=== PATIENT | female | born 1990 | race Caucasian/White ===

== ENCOUNTER 2016-08-27 09:51 | Emergency (ER) | payer SELFPAY ==
[2016-08-27 10:07] VITALS: BP 121/66; PULSE 85; TEMP 98.6; BMI 19.5
--- NOTE | 2016-08-27 10:24 | EDPRACDOC ---
- General Information Chief Complaint: Earache Stated Complaint: SORE THROAT/ EAR PAIN Time Seen by Provider: 08/27/16 10:07 Information Source: Patient Mode of Arrival: Car Home Medications: Home Medications Amoxicillin [Amoxil] 500 mg PO BID #20 cap 08/27/16 Fluticasone Propionate [Flonase Nasal [place]] 1 - 2 spray ODESSA DAILY #1 each 08/27 Norgestimate-Ethinyl Estradiol [Sprintec] 1 tab PO DAILY 08/27/16 Pseudoephedrine [Sudafed] 30 mg PO Q6 PRN #10 tab 08/27/16 Allergies/Adverse Reactions: Allergies Allergy/AdvReac Type Severity Reaction Status Date / Time No Known Allergies Allergy Verified 08/27/16 10:07 - History of Present Illness Onset: days HPI: Patient reports she has been intermittently sick for 2 wks, cough/congestion, ear pain and sore throat. Left ear pain and sore throat x 2 days which has been worsening. Patient denies fever, chills, nausea/vomiting. Denies chance of . Location: left ear Context: Reports: URI Symptoms Pain Severity: Reports: Mild Associated Signs & Symptoms: Reports: Runny Nose, Sore Throat ED Past Medical History - History Reviewed Yes Nurses notes reviewed and agree except as marked No Past Medical History: Yes Patient has no past medical history - Patient Medical History Systemic History: Reports: Anemia. Denies: Cancer, Lupus Surgical History: Denies: Hysterectomy - Family Medical History Reports: Hypertension (MATERNAL GRANDFATHER), Diabetes (MATERNAL GRANDMOTHER PATERNAL GRANDMOTHER), Cancer (MATERNAL AUNTS), Stroke (MATERNAL AUNT), Cardiac Disorders (MATERNAL GRANDFATHER) - Social Medical History Smoking Status: Never smoker Social History: Denies: Amphetamine Use, Barbiturate Use ETOH: None Substance Abuse: None Lives In: Home EDM Review of Systems - Review of Systems ROS Negative Except as Marked: Yes All systems reviewed and were negative except as marked Constitutional: No Symptoms Reported Eyes: No Symptoms Reported Ears: Pain Throat: Pain Nose: Congestion Mouth: No Symptoms Reported Respiratory: No Symptoms Reported Cardiovascular: No Symptoms Reported Gastrointestinal: No Symptoms Reported Genitourinary: No Symptoms Reported - Physical Exam Constitutional: Alert (Awake), No apparent distress Oriented to: Time, Person, Place Last recorded Vital Signs: Last Vital Signs Temp 98.6 F 08/27/16 10:05 Pulse 85 08/27/16 10:05 Resp 16 08/27/16 10:05 BP 121/66 08/27/16 10:05 Pulse Ox 100 08/27/16 10:05 Oxygen Pulse Oxygen Saturation 100 O2 Device Oxygen Flow Rate Fraction of Inspired Oxygen ( FIO2) - HEENT Head: Normal ( normocephalic) Eye Exam: Normal (PERRL, EOMI, Sclera white) Oropharynx: Red. negative: Exudate Tympanic Membrane: Bulging, Redness ENT EAC: Normal TMJ: Normal Nose: No Symptoms Reported (septum midline) Neck: Normal (FROM, trachea at midline) - Respiratory/Cardiovascular Respiratory: Normal - CTA (BBS clear to auscultation without adventitious sounds ) Cardiovascular: Normal (RRR without murmur, gallop or rub) - GI Auscultation: Normal (NABS) Tenderness: Non tender - Musculoskeletal Back: Normal (Non-Tender) Extremities: Normal (Normal tone, Pulses 2+ No cyanosis or edema, FROM) - Integumentary Skin: Normal, Warm, Dry Lymphatics: Normal (no adenopathy) - Neurologic Memory Impaired: Normal Motor Function: Normal (Normal tone, Pulses 2+ No cyanosis or edema, FROM) Mood Description: Normal Thought: Coherent Decision Time to Discharge: 10:25 - Departure Disposition: Home Condition: Good Final Diagnosis: Otitis media Upper respiratory infection Qualifiers: URI type: unspecified URI Qualified Code(s): J06.9 - Acute upper respiratory infection, unspecified Instructions: Otitis Media (ED) Education/Counseling Given To: Patient Education/Counseling Given Regarding: Diagnosis, Treatment, Prognosis, Follow Up Referrals: Juancarlos Berg MD [Staff Physician] - One Week Prescriptions: Amoxicillin [Amoxil] 500 mg PO BID #20 cap Fluticasone Propionate [Flonase Nasal [place]] 1 - 2 spray ODESSA DAILY #1 each Pseudoephedrine [Sudafed] 30 mg PO Q6 PRN #10 tab PRN Reason: Congestion Additional Instructions: Please followup with PCP in 1-2days and establish care. Return to ED if symptoms worsen/change or concerns arise. Rest, drink plenty of fluids, Tylenol/ Motrin and OTC medications for symptoms.
== END 2016-08-27 10:36 | disposition home or self-care (01) ==
LOC: ED 09:51
DX: H66.90 Otitis media, unspecified, unspecified ear (principal); J06.9 Acute upper respiratory infection, unspecified
CPT/HCPCS: 99282